=== PATIENT | male | born 1960 | race Caucasian/White ===

== ENCOUNTER 2017-03-08 09:38 | Emergency (ER) | payer OTHER ==
[~2017-03-08] VITALS: Ht 182.9 cm; Wt 119.8 kg
[~2017-03-08 09:38] MED LIST: BACTRIM,SEPT1 TABLET PO
[2017-03-08 10:02] LABS: HEMATOCRIT 46.8 % (38.0-50.0); MCH 31.6 PG (29.0-34.0); MCHC 35.9 G/DL (30.0-36.0); MCV 88.1 FL (86-99); MEAN PLAT.VOLUME 10.7 uM^3 (9.0-12.4); PLATELET COUNT 158 K/uL (156-360); RBC DIS.WIDTH-CV 12.5 % (11.8-14.6); RBC DIS.WIDTH-SD 40.5 % (39-53); RED BLOOD COUNT 5.31 M/uL (4.00-5.50); WHITE BLOOD COUNT 10.6 K/uL (4.1-10.2)
[2017-03-08 10:13] LABS: CHLORIDE 102 mEq/L (99-109); POTASSIUM 4.3 mEq/L (3.7-5.4); SODIUM 138 mEq/L (136-147)
[2017-03-08 10:14] LABS: GLUCOSE 130 mg/dL (70-99)
[2017-03-08 10:16] LABS: ANION GAP 10 MEQ/L (2-14)
[2017-03-08 10:18] LABS: GFR ESTIMATE (CALCULATED) > 59 mL/min/
[2017-03-08 10:19] LABS: UREA NITROGEN (BUN) 25 mg/dL (9-23)
[2017-03-08 13:00] LABS: ADD MIUA? YES; BILIRUBIN NEGATIVE; BLOOD SMALL; COLOR YELLOW ((YELLOW)); GLUCOSE (STRIP) NEGATIVE; KETONES NEGATIVE; LEUKOCYTES NEGATIVE; NITRITE NEGATIVE; PROTEIN (STRIP) NEGATIVE; SPECIFIC GRAVITY 1.044 (1.000-1.030); UROBILINOGEN 0.2 MG/DL (0.2-1.0)
[2017-03-08 13:03] LABS: BACTERIA RARE /HPF; EPITHELIAL CELLS RARE /HPF; MUCUS TRACE /LPF; UCUL ADDED? NO; WHITE BLOOD CELLS 0-5 /HPF (0-5)
[2017-03-08] MEDS ORDERED: FLOMAX0.4 MG PO (13:44)
[2017-03-08] MEDS ORDERED: PERCOCET 5/31 TABLET PO (13:44)
[2017-03-08 14:40] VITALS: BP 141/92
== END 2017-03-08 14:41 | disposition home or self-care (01) ==
LOC: EME 09:38
DX: N13.2 Hydronephrosis with renal and ureteral calculous obstruction (principal); K74.60 Unspecified cirrhosis of liver; I44.0 Atrioventricular block, first degree; Z87.891 Personal history of nicotine dependence
CPT/HCPCS: 71020; 74177; 80048; 81003; 85027; 93005; 99281; 99285; J1885; J2270; J2405

== ENCOUNTER 2018-03-04 18:46 | Emergency (ER) | payer OTHER ==
[~2018-03-04] VITALS: Ht 182.9 cm; Wt 103.6 kg
[~2018-03-04 18:46] MED LIST changes: +FLOMAX0.4 MG PO; +PERCOCET 5/31 TABLET PO
[2018-03-04] MEDS ORDERED: NORCO 5/3251 TABLET PO (21:03)
[2018-03-04 21:57] VITALS: BP 111/84
== END 2018-03-04 21:59 | disposition home or self-care (01) ==
LOC: EME 18:46
PROC: 2W39X1Z Immobilization of Left Upper Extremity using Splint (ICD-10-PCS; principal; 2018-03-04)
DX: S42.402A Unspecified fracture of lower end of left humerus, initial encounter for closed fracture (principal); W22.8XXA Striking against or struck by other objects, initial encounter; I10 Essential (primary) hypertension; E11.9 Type 2 diabetes mellitus without complications; E78.5 Hyperlipidemia, unspecified; Z87.891 Personal history of nicotine dependence; Z90.5 Acquired absence of kidney
CPT/HCPCS: 73080; 99281; 99284

== ENCOUNTER 2018-03-18 11:46 | Day surgery (SDC) | payer OTHER ==
[~2018-03-18] VITALS: Ht 182.9 cm; Wt 106.1 kg
[~2018-03-18 11:46] MED LIST changes: +DILANTIN100 MG PO; +LIPITOR20 MG PO; +NORCO 5/3251 TABLET PO; +NORVASC10 MG PO; +TRADJENTA5 MG PO; +TYLENOL EXTRA500 MG PO
[2018-03-18 12:20] LABS: HEMATOCRIT 32.8 % (38.0-50.0); HEMOGLOBIN 11.3 G/DL (12.5-16.6); MCHC 34.5 G/DL (30.0-36.0); MCV 90.1 FL (86-99); PLATELET COUNT 196 K/uL (156-360); RBC DIS.WIDTH-SD 43.2 % (39-53); RED BLOOD COUNT 3.64 M/uL (4.00-5.50); WHITE BLOOD COUNT 7.8 K/uL (4.1-10.2)
[2018-03-18 12:29] VITALS: BP 135/86
[2018-03-18 12:40] LABS: CHLORIDE 109 mEq/L (99-109); SODIUM 141 mEq/L (136-147)
[2018-03-18 12:41] LABS: GLUCOSE 99 mg/dL (70-99)
[2018-03-18 12:45] LABS: GFR ESTIMATE (CALCULATED) 16 mL/min/ (58.99-99999)
[2018-03-18 12:46] LABS: UREA NITROGEN (BUN) 59 mg/dL (9-23)
[2018-03-18] MEDS ORDERED: NORCO 5/3251 TABLET PO (16:40)
[2018-03-18 17:20] VITALS: BP 143/85
[2018-03-18 18:20] VITALS: BP 116/79
== END 2018-03-18 18:50 | disposition home or self-care (01) ==
LOC: SDC 11:46
PROVIDERS: Surgery
DX: I12.0 Hypertensive chronic kidney disease with stage 5 chronic kidney disease or end stage renal disease (principal); E11.22 Type 2 diabetes mellitus with diabetic chronic kidney disease; N18.6 End stage renal disease; Z87.891 Personal history of nicotine dependence; Z79.84 Long term (current) use of oral hypoglycemic drugs; Z91.040 Latex allergy status; E78.4 Other hyperlipidemia; G40.909 Epilepsy, unspecified, not intractable, without status epilepticus; Z90.5 Acquired absence of kidney; Z85.53 Personal history of malignant neoplasm of renal pelvis; G47.30 Sleep apnea, unspecified
CPT/HCPCS: 80048; 80185; 82948; 85027; J0690; J1644; J2250; J2405; J3010